=== PATIENT | male | born 1950 | race Caucasian/White ===

== ENCOUNTER 2017-04-06 08:28 | Emergency (ER) | payer MEDICAID, OTHER ==
[~2017-04-06] VITALS: Ht 175.3 cm; Wt 73.0 kg
[2017-04-06 09:05] VITALS: BP 199/113
== END 2017-04-06 10:15 | disposition home or self-care (01) ==
LOC: ER 08:47
DX: S90.851A Superficial foreign body, right foot, initial encounter (principal); I25.2 Old myocardial infarction; F17.200 Nicotine dependence, unspecified, uncomplicated; X58.XXXA Exposure to other specified factors, initial encounter; Y93.89 Activity, other specified; Y92.89 Other specified places as the place of occurrence of the external cause; Y99.8 Other external cause status
CPT/HCPCS: 73630; 99284; Z7610